=== PATIENT | female | born 1975 | race American Indian/Alaskan Native ===

== ENCOUNTER 2016-11-24 12:27 | Emergency (ER) | payer MEDICAID, OTHER ==
--- NOTE | 2016-11-24 12:50 | ED PDOC ---
Arrival/HPI - General Chief Complaint: Substance Abuse Time Seen by Provider: 11/24/16 12:30 Historian: Patient - History of Present Illness Narrative History of Present Illness (Text): 11/24/16 12:47 A 41 year old female with no known past medical history, presents to the emergency department via EMS. EMS states that she was found on the street acting strange. When asked about drug/ ETOH use,the patient said she "used a good one" and admitted to using PCP. The patient denies fevers, chills, headache , dizziness, sore throat, cough, chest pain, shortness of breath, dyspnea on exertion, abdominal pain, nausea, vomiting, diarrhea, neck pain, back pain, urinary/bowel changes, suicidal/homicidal ideation or any other complaints. Time/Duration: Prior to Arrival Symptom Onset: Sudden Symptom Course: Unchanged Activities at Onset: Rest, Light Context: Street Past Medical History - Provider Review Nursing Documentation Reviewed: Yes - Infectious Disease Hx of Infectious Diseases: None - Neurological Hx Headaches: Yes - Musculoskeletal/Rheumatological Other/Comment: Left knee problems - Psychiatric Hx Substance Use: Yes - Suicidal Assessment Feels Threatened In Home Enviroment: No Family/Social History - Physician Review Nursing Documentation Reviewed: Yes Family/Social History: No Known Family HX Smoking Status: Heavy Smoker > 10 Cigarettes Daily Hx Alcohol Use: Yes Hx Substance Use: Yes Allergies/Home Meds Allergies/Adverse Reactions: Allergies No Known Allergies Allergy (Verified 11/24/16 12:38) Home Medications: Home Meds Medication Instructions Recorded Confirmed No Known Home Med [No Known Home 03/04/14 11/24/16 Med] Review of Systems - Review of Systems Constitutional: absent: Fevers, Night Sweats Respiratory: absent: SOB, Cough Cardiovascular: absent: Chest Pain, LANDEROS Gastrointestinal: absent: Abdominal Pain, Stool Changes, Diarrhea, Nausea, Vomiting Genitourinary Female: absent: Urine Output Changes Musculoskeletal: absent: Back Pain, Neck Pain Neurological: absent: Headache, Dizziness Psychiatric: absent: Suicidal Ideation Physical Exam Vital Signs Reviewed: Yes Vital Signs Temp Pulse Resp BP Pulse Ox 11/24/16 15:07 88 18 152/102 H 98 11/24/16 12:28 98.7 F 104 H 18 159/96 H 97 Temperature: Afebrile Blood Pressure: Hypertensive Pulse: Tachycardic Respiratory Rate: Normal Appearance: Positive for: Well-Appearing, Non-Toxic, Comfortable Pain Distress: None Mental Status: Positive for: Alert and Oriented X 3 - Systems Exam Head: Present: Atraumatic, Normocephalic Pupils: Present: PERRL Extroacular Muscles: Present: EOMI Conjunctiva: Present: Normal Mouth: Present: Moist Mucous Membranes Neck: Present: Normal Range of Motion Respiratory/Chest: Present: Clear to Auscultation, Good Air Exchange. No: Respiratory Distress, Accessory Muscle Use Cardiovascular: Present: Regular Rate and Rhythm, Normal S1, S2. No: Murmurs Abdomen: Present: Normal Bowel Sounds. No: Tenderness, Distention, Peritoneal Signs Back: Present: Normal Inspection Upper Extremity: Present: Normal Inspection. No: Cyanosis, Edema Lower Extremity: Present: Normal Inspection. No: Edema Neurological: Present: GCS=15, CN II-XII Intact, Speech Normal Skin: Present: Warm, Dry, Normal Color. No: Rashes Psychiatric: Present: Alert, Oriented x 3, Normal Insight, Normal Concentration Medical Decision Making ED Course and Treatment: 11/24/16 12:50 Impression: A 41 year old female presents to the emergency department via EMS after reportedly acting strange. She states that she "used a good one" and admitted to using PCP. Plan: -- Labs -- Urinalysis -- Reassess and disposition Prior Visits: Notes and results from previous visits were reviewed. On 03/04/14, the patient was seen in the emergency department for substance abuse. Progress Notes: 11/24/16 15:39; Patient has been observed for 3+ hours. The patient has been calm and cooperative. She denies any suicidal/homicidal ideation. The patient is asking for discharge. - Lab Interpretations Lab Results: 11/24/16 13:03 11/24/16 13:03 Lab Results 11/24/16 15:12: Urine Opiates Screen Negative, Urine Methadone Screen Negative, Ur Barbiturates Screen Negative, Ur Phencyclidine Scrn Positive H, Ur Amphetamines Screen Negative, U Benzodiazepines Scrn Negative, U Oth Cocaine Metabols Negative, U Cannabinoids Screen Positive H 11/24/16 15:12: Urine Color Yellow, Urine Appearance Clear, Urine pH 6.5, Ur Specific [place] 1.010, Urine Protein 30 H, Urine Glucose (UA) Negative, Urine Ketones 15 H, Urine Blood Negative, Urine Nitrate Negative, Urine Bilirubin Negative, Urine Urobilinogen 0.2, Ur Leukocyte Esterase Negative, Urine RBC Negative, Urine WBC Negative, Ur Epithelial Cells 1 - 3, Urine HCG, Qual Negative 11/24/16 13:03: Alcohol, Quantitative < 10 11/24/16 13:03: Salicylates < 1 L, Acetaminophen < 10.0 L 11/24/16 13:03: Sodium 142, Potassium 2.9 L*, Chloride 104, Carbon Dioxide 25, Anion Gap 16, BUN 16, Creatinine 0.8, Est GFR ( Amer) > 60, Est GFR (Non- Af Amer) > 60, Random Glucose 143 H, Calcium 9.5, Total Bilirubin 0.6, AST 28, ALT 27, Alkaline Phosphatase 63, Total Protein 7.5, Albumin 4.3, Globulin 3.1, Albumin/Globulin Ratio 1.4 11/24/16 13:03: WBC 10.8, RBC 3.81, Hgb 12.5, Hct 36.3, MCV 95.3, MCH 32.8, MCHC 34.4, RDW 13.5, Plt Count 348, MPV 9.0, Gran % 74.4 H, Lymph % (Auto) 19.3 L, Dent % (Auto) 5.9, Eos % (Auto) 0.2 L, Baso % (Auto) 0.2, Gran # 8.01 H, Lymph # 2.1, Dent # 0.6, Eos # 0.0, Baso # 0.02 I have reviewed the lab results: Yes - Medication Orders Current Medication Orders: Discontinued Medications Potassium Chloride (Potassium Chloride 10 Meq/100 Ml) 10 meq in 100 mls @ 100 mls/hr IVPB Q2H KAL Stop: 11/24/16 16:44 Last Admin: 11/24/16 13:41 Dose: 100 mls/hr eMAR Start Stop Document 11/24/16 13:41 GMD (Rec: 11/24/16 13:41 GMD [id number] Intravenous Solution Start Date 11/24/16 Start Time 13:41 End Date 11/24/16 End time 14:41 Total Infusion Time 60 Potassium Chloride (K-Dur 20 Meq Er Tab) 40 meq PO STAT STA Stop: 11/24/16 13:35 Last Admin: 11/24/16 13:41 Dose: 40 meq - Scribe Statement The provider has reviewed the documentation as recorded by the Jermaineibe Brielle Bass Provider Rich Attestation: All medical record entries made by the Jermaineibe were at my direction and personally dictated by me. I have reviewed the chart and agree that the record accurately reflects my personal performance of the history, physical exam, medical decision making, and the department course for this patient. I have also personally directed, reviewed, and agree with the discharge instructions and disposition. Disposition/Present on Arrival - Present on Arrival Any Indicators Present on Arrival: No History of DVT/PE: No History of Uncontrolled Diabetes: No Urinary Catheter: No History of Decub. Ulcer: No History Surgical Site Infection Following: None - Disposition Have Diagnosis and Disposition been Completed?: Yes Diagnosis: Substance abuse Disposition: HOME/ ROUTINE Disposition Time: 03:00 Condition: STABLE Discharge Instructions (ExitCare): Polysubstance Abuse (ED) Additional Instructions: return to er with worsening symptoms or concerns. Referrals: Community [facility] [Outside] - Follow up with primary [facility] [place]] - Follow up with primary PCP,NO [Primary Care Provider] - Follow up with primary Forms: [employer] (Upper Sor[place])
[2016-11-24 12:53] VITALS: RESP 18; TEMP 98.7; BMI 23.6
[2016-11-24 13:20] LABS: ALB/GLOB RATIO 1.4 (1.1-1.8); ALKALINE PHOSPHATASE 63 U/L (38-126); ALT/SGPT 27 U/L (7-56); AST/SGOT 28 U/L (14-36); BILIRUBIN,TOTAL 0.6 mg/dL (0.2-1.3); BLOOD UREA NITROGEN 16 mg/dL (7-21); CALCIUM 9.5 mg/dL (8.4-10.5); CARBON DIOXIDE 25 mmol/L (21-33); CHLORIDE 104 mmol/L (98-107); GFR AFRICAN-AMERICAN > 60; GLUCOSE,RANDOM 143 mg/dL (70-110); SODIUM 142 mmol/L (132-148); TOTAL PROTEIN 7.5 g/dL (5.8-8.3)
[2016-11-24 13:22] LABS: POTASSIUM 2.9 mmol/L (3.6-5.0)
[2016-11-24 13:28] LABS: BASO # 0.02 K/mm3 (0.0-2.0); BASO % 0.2 % (0.0-3.0); EOS % 0.2 % (1.5-5.0); GRAN # 8.01 (1.4-6.5); GRAN % 74.4 % (50.0-68.0); HEMATOCRIT 36.3 % (36.0-48.0); LYMPH # 2.1 (1.2-3.4); LYMPH % 19.3 % (22.0-35.0); MEAN CELL VOLUME 95.3 fl (80.0-105.0); MEAN CORPUSCULAR HEMOGLOBIN 32.8 pg (25.0-35.0); MEAN CORPUSCULAR HGB CONC 34.4 g/dl (31.0-37.0); MONO # 0.6 (0.1-0.6); MONO % 5.9 % (1.0-6.0); RED CELL DISTRIBUTION WIDTH 13.5 % (11.5-14.5); WHITE BLOOD COUNT 10.8 10^3/ul (4.5-11.0)
[2016-11-24] MEDS ORDERED: Potassium Chloride 20 mEq ER Tab PO STA (13:34)
[2016-11-24 15:08] VITALS: BP 152/102; PULSE 88; O2SAT 98
[2016-11-24 15:18] LABS: PH,URINE 6.5 (4.7-8.0); URINE BILIRUBIN NEGATIVE (NEGATIVE); URINE BLOOD NEGATIVE (NEGATIVE); URINE GLUCOSE (UA) NEGATIVE (NEGATIVE); URINE KETONE 15 mg/dL (NEGATIVE); URINE LEUKOCYTE ESTERASE NEGATIVE Leu/uL (NEGATIVE); URINE PROTEIN 30 mg/dL (<30 mg/dL); URINE UROBILINOGEN 0.2 E.U./dL (<1 E.U./dL)
[2016-11-24 15:20] LABS: URINE APPEARANCE CLEAR (CLEAR); URINE COLOR YELLOW (YELLOW)
[2016-11-24 15:23] LABS: URINE RBC NEGATIVE /hpf (0-2); URINE WBC NEGATIVE /hpf (0-6)
== END 2016-11-24 15:42 | disposition home or self-care (01) ==
LOC: ED 12:27
DX: F19.10 Other psychoactive substance abuse, uncomplicated (principal)
CPT/HCPCS: 80053; 81001; 84703; 85025; 96365; 99285; G0480; J3480

== ENCOUNTER 2017-04-02 21:43 | Emergency (ER) | payer MEDICAID ==
[2017-04-02 21:43] VITALS: BMI 23.6
[2017-04-02 22:56] VITALS: TEMP 97.6
--- NOTE | 2017-04-02 23:58 | ED PDOC ---
Arrival/HPI - General Chief Complaint: Substance Abuse Time Seen by Provider: 04/02/17 22:49 Historian: Patient, EMS - History of Present Illness Narrative History of Present Illness (Text): 04/02/17 22:55 42 year old female, whose past medical history includes substance abuse, presents to the emergency department by EMS after being found out doors and acting in a bizarre manner. Patient is under the influence of drugs and possible use PCP. Patient has a history of drug abuse and has been seen in the ER in the past for similar occasions. Patient when questioned admits to use of marijuana. She denies any other drug use, or alcohol use. Patient offers no symptomatic complaints and denies any fever, chill, suicidal/homicidal Ideation , or any other complaints. Symptom Onset: Gradual Symptom Course: Unchanged Activities at Onset: Light Context: Other (outside) Past Medical History - Provider Review Nursing Documentation Reviewed: Yes - Infectious Disease Hx of Infectious Diseases: None - Neurological Hx Headaches: Yes - Musculoskeletal/Rheumatological Other/Comment: Left knee problems - Psychiatric Hx Substance Use: Yes - Suicidal Assessment Feels Threatened In Home Enviroment: No Family/Social History - Physician Review Nursing Documentation Reviewed: Yes Family/Social History: No Known Family HX Smoking Status: Heavy Smoker > 10 Cigarettes Daily Hx Alcohol Use: Yes Hx Substance Use: Yes Allergies/Home Meds Allergies/Adverse Reactions: Allergies No Known Allergies Allergy (Verified 11/24/16 12:38) Home Medications: Home Meds Medication Instructions Recorded Confirmed No Known Home Med [No Known Home 03/04/14 04/02/17 Med] Review of Systems - Physician Review All systems were reviewed & negative as marked: Yes - Review of Systems Constitutional: absent: Fevers, Other (Chills) Psychiatric: absent: Suicidal Ideation (/Homicidal Ideation) Physical Exam Vital Signs Reviewed: Yes Vital Signs Temp Pulse Resp BP Pulse Ox 04/02/17 22:54 97.6 F 71 18 154/87 H 96 Temperature: Afebrile Blood Pressure: Normal Pulse: Regular Respiratory Rate: Normal Appearance: Positive for: Well-Appearing, Non-Toxic, Comfortable Pain Distress: None Mental Status: Positive for: Alert and Oriented X 3 - Systems Exam Head: Present: Atraumatic, Normocephalic Pupils: Present: PERRL Extroacular Muscles: Present: EOMI Conjunctiva: Present: Normal Mouth: Present: Moist Mucous Membranes Neck: Present: Normal Range of Motion. No: Meningeal Signs Respiratory/Chest: Present: Clear to Auscultation, Good Air Exchange. No: Respiratory Distress, Accessory Muscle Use Cardiovascular: Present: Regular Rate and Rhythm, Normal S1, S2. No: Murmurs Abdomen: Present: Normal Bowel Sounds. No: Tenderness, Distention, Peritoneal Signs Back: Present: Normal Inspection Upper Extremity: Present: Normal Inspection. No: Cyanosis, Edema Lower Extremity: Present: Normal Inspection. No: Edema Neurological: Present: GCS=15, CN II-XII Intact, Speech Normal Skin: Present: Warm, Dry, Normal Color. No: Rashes Psychiatric: Present: Alert, Oriented x 3, Normal Insight, Normal Concentration Medical Decision Making ED Course and Treatment: 04/02/17 22:55 Impression: 42 year old female presents found under the influence of drugs and acting in a bizarre manner. Plan: -- EKG -- Labs -- Reassess and disposition Prior Visits: Notes and results from previous visits were reviewed. Patient was last seen in the emergency department on 11/24/16 presents found acting strange and under the influence of drugs and ETOH. Patient was discharged. Progress Notes: EKG shows Sinus Bradycardia at 57 BPM with no acute changes. Interpreted by me. 04/03/17 05:16 Pt. is awake alert no longer under the influence.States she feels fine and understands need to refrain from future drug use. - Lab Interpretations Lab Results: 04/03/17 00:10 04/03/17 00:10 Lab Results 04/03/17 03:50: Urine Opiates Screen Negative, Urine Methadone Screen Negative, Ur Barbiturates Screen Negative, Ur Phencyclidine Scrn Positive H, Ur Amphetamines Screen Negative, U Benzodiazepines Scrn Negative, U Oth Cocaine Metabols Negative, U Cannabinoids Screen Positive H 04/03/17 00:10: Alcohol, Quantitative < 10 04/03/17 00:10: Sodium 144, Potassium 4.1, Chloride 104, Carbon Dioxide 30, Anion Gap 14, BUN 6 L, Creatinine 0.6 L, Est GFR ( Amer) > 60, Est GFR ( Non-Af Amer) > 60, Random Glucose 90, Calcium 9.9, Total Bilirubin 0.1 L, AST 26 , ALT 20, Alkaline Phosphatase 57, Total Protein 7.1, Albumin 4.2, Globulin 2.9 , Albumin/Globulin Ratio 1.5 04/03/17 00:10: WBC 12.7 H, RBC 3.74, Hgb 11.9 L, Hct 36.5, MCV 97.6, MCH 31.8, MCHC 32.6, RDW 14.8 H, Plt Count 388, MPV 9.1 I have reviewed the lab results: Yes - EKG Interpretation Interpreted by ED Physician: Yes Type: 12 lead EKG - Scribe Statement The provider has reviewed the documentation as recorded by the Jermaineibe Mike Hoff Provider Scribe Attestation: All medical record entries made by the Jermaineibandrew were at my direction and personally dictated by me. I have reviewed the chart and agree that the record accurately reflects my personal performance of the history, physical exam, medical decision making, and the department course for this patient. I have also personally directed, reviewed, and agree with the discharge instructions and disposition. Disposition/Present on Arrival - Present on Arrival Any Indicators Present on Arrival: No History of DVT/PE: No History of Uncontrolled Diabetes: No Urinary Catheter: No History of Decub. Ulcer: No History Surgical Site Infection Following: None - Disposition Have Diagnosis and Disposition been Completed?: Yes Diagnosis: PCP (phencyclidine) abuse, Marijuana abuse Disposition: HOME/ ROUTINE Disposition Time: 05:15 Patient Plan: Discharge Condition: GOOD Discharge Instructions (ExitCare): Polysubstance Abuse (ED) Additional Instructions: Avoid drug(PCP/Marijuana)use/follow up with your doctor this week Referrals: Community Mental Health [Outside] - Follow up with primary Forms: [employer] ([place]uan)
[2017-04-03 00:27] LABS: HEMOGLOBIN 11.9 g/dL (12.0-16.0); MEAN CELL VOLUME 97.6 fl (80.0-105.0); MEAN CORPUSCULAR HEMOGLOBIN 31.8 pg (25.0-35.0); MEAN CORPUSCULAR HGB CONC 32.6 g/dl (31.0-37.0); MEAN PLATELET VOLUME 9.1 fl (7.0-11.0); RBC 3.74 10^6/uL (3.5-6.1); RED CELL DISTRIBUTION WIDTH 14.8 % (11.5-14.5); WHITE BLOOD COUNT 12.7 10^3/ul (4.5-11.0)
[2017-04-03 00:51] LABS: ALB/GLOB RATIO 1.5 (1.1-1.8); ALBUMIN 4.2 g/dL (3.0-4.8); ALT/SGPT 20 U/L (7-56); AST/SGOT 26 U/L (14-36); BLOOD UREA NITROGEN 6 mg/dL (7-21); CALCIUM 9.9 mg/dL (8.4-10.5); GFR AFRICAN-AMERICAN > 60; GFR NON-AFRICAN AMERICAN > 60
[2017-04-03 04:16] LABS: BARBITURATES, UR NEGATIVE (NEGATIVE); BENZODIAZEPINES, UR NEGATIVE (NEGATIVE); OPIATES, UR NEGATIVE (NEGATIVE)
[2017-04-03 04:23] LABS: PHENCYCLIDINE, UR POSITIVE (NEGATIVE)
[2017-04-03 05:36] VITALS: BP 136/74; PULSE 82; RESP 16; O2SAT 100
--- NOTE | 2017-04-03 10:23 | CARD ---
APPROVED REPORT EKG Measurement Heart [id number] <Conclusion> Sinus bradycardia
== END 2017-04-03 06:15 | disposition home or self-care (01) ==
LOC: ED 21:43
DX: F16.10 Hallucinogen abuse, uncomplicated (principal); F12.10 Cannabis abuse, uncomplicated